=== PATIENT | female | born 1995 | race Caucasian/White ===

== ENCOUNTER 2025-05-29 18:04 | Inpatient (IN) ==
[2025-05-31] MEDS ORDERED: OXYTOCIN 30 UNITS/NSS 30 UNITS/500 ML BAG IV PRN ×2 (08:05→23:07)
[2025-05-31] MEDS ORDERED: LIDOCAINE 1% LOCAL 20 ML VIAL INFIL PRN (08:05)
[2025-05-31] MEDS ORDERED: ACETAMINOPHEN 325 MG TAB PO PRN ×2 (08:05→23:07)
[2025-05-31] MEDS ORDERED: CALCIUM CARBONATE 500 MG CHEWABLE TAB PO PRN (08:05)
--- NOTE | 2025-05-31 08:07 | History & Physical Report ---
Date of Service May 31, 2025 Assessment & Plan (1) with 41 completed weeks gestation: (2) Encounter for induction of labor: (3) Carrier of group B Streptococcus: Plan torrez placed for unfavorable cervix. start pitocin, epidural on request, arom when indicated, fetus category one. anticipate . pcn for gbs+ Admission and Anticipated Discharge Date Admission Date: May 31, 2025 History of Present Illness Chief Complaint: Patient is a 29yowf wtih iup at 41 weeks who presents for postdates induction. Notes good fm. no lof/vb. Occasional contraction. 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 GBS Positive in Urine *Treat in Labor OB Labs: Blood Type O Positive 10/28/24 Antibody Screen NEGATIVE 10/28/24 Hgb 11.2 g/dl (12.0-16.0) L 03/03/25 Hct 32.9 % (37.0-47.0) L 03/03/25 MCV 88.2 fL (80.0-100.0) 10/28/24 Plt Count 372 K/uL (130-400) 10/28/24 Rubella IgG Antibody Immune (Immune) 10/28/24 RPR Nonreactive (Nonreactive) 08/28/22 Treponema pallidum Ab Negative (Negative) 03/03/25 Hep Bs Antigen Negative (Negative) 10/28/24 Hep Bs Antigen NON-REACTIVE (NON-REACTIVE) 08/28/22 Hepatitis C Antibody Negative (Negative) 10/28/24 Hepatitis C Ab (EIA) NON-REACTIVE (NON-REACTIVE) 08/28/22 HIV 1&2 Ab/P24 Ag 4thGn Negative (Negative) 10/28/24 HIV (1&2) Ag & Ab Conf NON-REACTIVE (NON-REACTIVE) 08/28/22 Glucose 1 Hr 50 gm 120 mg/dl (70-130) 03/03/25 OB Optional Labs: Chlamydia trachomatis RNA Not Detected (NotDetected) 10/28/24 Neisseria gonorrhoeae RNA Not Detected (NotDetected) 10/28/24 Thyroid Stimulating Hormone (TSH) 1.920 uIu/ml (0.300-4.500) 07/17/18 Labs Reviewed: +SMA carrier; FOB to be tested--mln msafp declined smp cfDNA declines/quad declines smp gbs positive urine Primary Care Provider: MADHU Oneill Allergies Allergy/AdvReac Type Severity Reaction Status Date / Time No Known Allergies Allergy Verified 05/28/25 13:40 Home Medications Medication Instructions Recorded Confirmed Type vits no.124-ferrous fum 1 tab PO DAILY 05/31/25 05/31/25 History 27 mg iron-folic acid 800 mcg tablet ( Vitamin) Patient History Medical History Vaginal Pap smear with ASC-US Infection due to Neisseria gonorrhoeae Surgical History No pertinent past surgical history Family History Aunt Breast cancer Maternal, dx late 30s she thinks Denies family history of Ovarian cancer Prostate cancer Myocardial infarction Colorectal cancer Uterine cancer Social History Smoking Status: Never smoker Second Hand Exposure: No; Do You Dip or Chew Tobacco: No; Hx Alcohol Use: Yes Hx Substance Use: No Preferred Language: Sammarinese Communication Ability: Effective marital status: Single marital status details: manuel Granado (46) [phone] Current Living Situation: Significant Other Current Living Situation Comment: lives with fob, dog, guinea pig, cats-fob to change litter current occupational status: employed current occupation: [employer] Feels Safe at Home: Yes Childhood Exposure to Second-Hand Smoke: No caffeine: No Dental Care, Regularly: Yes Physical Activity Frequency: 5-6 Times per Week Seatbelt Use: always Sunscreen Use: Yes OB History g1--present [employer] History noncontributory Physical Exam Constitutional: WD/WN, vitals as above Gastrointestinal (Abdomen): soft, gravid, nt Psychiatric: A+Ox3, euthymic affect Genitourinary: cx--1/l/h, cephalic palpated toco--cortney efm--140s wtih mod variability, accels to 170s, no decels After reviewed r/b/se, verbal consent received for torrez bulb. speculum placed, torrez threaded through os, balloon filled with 30cc sterile water. tolerated well. Results & Data Vital Signs (Past 12 Hours) Vital Signs Pulse BP 05/31/25 07:51 89 143/81 H Coding Level of Care Code None Diagnoses with 41 completed weeks gestation O48.0; Z3A.41 Encounter for induction of labor Z34.90 Carrier of group B Streptococcus Z22.330
[2025-05-31 08:27] LABS: Hematocrit (blood only) 37.9 % (37.0-47.0); Hemoglobin 13.1 g/dl (12.0-16.0); Mean Corpuscular Hemoglobin 30.5 pg (25.0-34.0); Mean Corpuscular Volume 88.1 fL (80.0-100.0); Platelet Count 256 K/uL (130-400); RDW Standard Deviation 43.5 fL (36.4-46.3); Red Blood Count 4.30 M/uL (4.20-5.40); White Blood Count 6.29 K/ul (4.8-10.8)
[2025-05-31] MEDS: LACTATED RINGER'S 1,000 ML IV PRN (08:44)
[2025-05-31] MEDS: OXYTOCIN 30 UNITS/NSS 30 UNITS/500 ML BAG IV PRN (08:44)
[2025-05-31] MEDS: PENICILLIN GK 6 MU in DEXTROSE 5% 250 ML IV STA (08:46)
[2025-05-31] MEDS: PENICILLIN GK 3 MU in DEXTROSE 5% 100 ML IV PRN (12:32)
--- NOTE | 2025-05-31 13:48 | Anesthesiology Consultation ---
Date of Service May 31, 2025 Assessment & Plan (1) Encounter for pre-operative examination: Chart Review Chart Review: Acceptable Risk for Labor Epidural History Height/Weight Height: 5 ft 4.5 in Weight: 79.691 kg Allergies Allergy/AdvReac Type Severity Reaction Status Date / Time No Known Allergies Allergy Verified 05/28/25 13:40 Medications Home Medications Medication Instructions Recorded Confirmed Last Taken vits no.124-ferrous fum 1 tab PO DAILY 05/31/25 05/31/25 05/30/25 27 mg iron-folic acid 800 mcg tablet ( Vitamin) Active Medications Generic Name Dose Route Start Last Admin Trade Name Freq PRN Reason Stop Dose Admin Lactated Ringer's 1,000 mls @ 125 mls/hr 05/31/25 08:05 05/31/25 13:28 Lr IV 06/02/25 08:04 999 mls/hr .Q8H PRN Infusion L&D Protocol Protocol Penicillin G Potassium 3 mu/ 106 mls @ 100 mls/hr 05/31/25 11:05 05/31/25 12:32 Dextrose IV 06/10/25 11:04 100 mls/hr Q4H PRN Administration GBS(+) Until Delivery Oxytocin 30 units in 500 mls @ 8 mls/hr 05/31/25 08:09 05/31/25 11:05 Pitocin 30 Units/Nss IV 06/02/25 08:08 0.48 units/hr .Q24H PRN 8 mls/hr Labor Induction/Augmentation Titration Protocol 0.48 UNITS/HR Past Medical History Medical History Vaginal Pap smear with ASC-US Infection due to Neisseria gonorrhoeae Past Family History Family History Aunt Breast cancer Maternal, dx late 30s she thinks Denies family history of Ovarian cancer Prostate cancer Myocardial infarction Colorectal cancer Uterine cancer Past Surgical History Surgical History No pertinent past surgical history Social History Smoking Status: Never smoker Do You Dip or Chew Tobacco: No Hx Alcohol Use: No Hx Substance Use: No Physical Exam Vital Signs Last Vital Signs Temp 36.5 C 05/31/25 11:05 Pulse 75 05/31/25 11:04 Resp 18 07/20/25 11:10 BP 124/77 05/31/25 11:04 Testing Laboratory Results 05/31/25 08:13
[2025-05-31] MEDS: BUPIVACAINE 0.25% PF 30 ML VIAL ONE (14:16)
[2025-05-31] MEDS: LIDOCAINE 2%/EPINEPHRINE 1:200,000 20 ML PF ONE (14:16)
[2025-05-31] MEDS: fentANYL 2 MCG/ML BUPIVacaine 0.125%-NSS 100ML BAG ONE (14:17)
[2025-05-31] MEDS ORDERED: ROPIVACAINE 0.5% PF 5 MG/ML 20 ML VIAL EPI PRN (14:18)
[2025-05-31] MEDS ORDERED: NALOXONE HCL 0.4 MG/1 ML VIAL/CARP IV PRN (14:18)
[2025-05-31] MEDS ORDERED: BUPIVACAINE 0.25% PF 30 ML VIAL EPI PRN (14:18)
[2025-05-31] MEDS ORDERED: fentANYL 2 MCG/ML BUPIVacaine 0.125%-NSS 100ML BAG EPI PRN (14:18)
[2025-05-31] MEDS ORDERED: ONDANSETRON INJ 2 MG/ML 2 ML VIAL IV PRN (14:18)
[2025-05-31] MEDS ORDERED: SODIUM CHLORIDE 0.9% PF INJ 10 ML VIAL EPI PRN (14:18)
[2025-05-31] MEDS ORDERED: NALOXONE HCL 1 MG in SODIUM CHLORIDE 0.9% 1,000 ML IV PRN (14:18)
[2025-05-31] MEDS ORDERED: LIDOCAINE 2% MPF LOCAL 5 ML VIAL EPI PRN (14:18)
--- NOTE | 2025-05-31 14:44 | Labor Progress Brief Note ---
Date of Service May 31, 2025 Subjective Balloon out, comfortable with epidural Assessment & Plan (1) Encounter for induction of labor: Plan continue current management. fetus category one. Admission and Anticipated Discharge Date Admission Date: May 31, 2025 Physical Exam Physical Exam: cx--1.5-2/50/-2 arom--clear toco--q1-3, pit at 8 efm--140s with mod variability, accels present, no decels Results & Data Vital Signs (Past 12 Hours) Vital Signs Temp Pulse Resp BP Pulse Ox 05/31/25 14:36 98 05/31/25 14:36 106 H 05/31/25 14:31 100 05/31/25 14:31 81 05/31/25 14:30 75 05/31/25 14:30 111/75 05/31/25 14:27 81 05/31/25 14:27 105/58 L 05/31/25 14:26 98 05/31/25 14:26 85 05/31/25 14:25 72 05/31/25 14:25 106/54 L 05/31/25 14:23 64 05/31/25 14:23 109/57 L 05/31/25 14:21 100 05/31/25 14:21 75 05/31/25 14:21 112/58 L 05/31/25 14:19 75 05/31/25 14:19 111/56 L 05/31/25 14:17 75 05/31/25 14:17 111/56 L 05/31/25 14:16 100 05/31/25 14:16 65 05/31/25 14:15 65 05/31/25 14:15 114/63 05/31/25 14:13 61 05/31/25 14:13 108/57 L 05/31/25 14:12 64 05/31/25 14:12 128/67 05/31/25 14:11 100 05/31/25 14:11 62 05/31/25 14:09 76 05/31/25 14:09 145/70 H 05/31/25 14:06 100 05/31/25 14:06 97 H 05/31/25 14:05 92 H 05/31/25 14:05 166/76 H 05/31/25 14:01 100 05/31/25 14:01 89 05/31/25 13:56 99 05/31/25 13:56 89 05/31/25 11:10 18 05/31/25 11:10 18 05/31/25 11:05 18 05/31/25 11:05 36.5 C 18 05/31/25 11:04 75 05/31/25 11:04 124/77 05/31/25 10:09 83 05/31/25 10:09 125/76 05/31/25 08:11 96 H 05/31/25 08:11 118/80 05/31/25 08:01 36.8 C 05/31/25 07:51 89 143/81 H Coding Level of Care Code None Diagnoses Encounter for induction of labor Z34.90
[2025-05-31] MEDS: SODIUM CHLORIDE 0.9% PF INJ 10 ML VIAL ONE (18:07)
[2025-05-31] MEDS: SODIUM CHLORIDE 0.9% PF INJ 10 ML VIAL EPI STA (18:07)
[2025-05-31] MEDS: BUPIVACAINE 0.25% PF 30 ML VIAL EPI STA (18:07)
--- NOTE | 2025-05-31 18:07 | Labor Progress Brief Note ---
Date of Service May 31, 2025 Subjective comfortable Assessment & Plan (1) Encounter for induction of labor: Plan IUPC placed in order to better run pitocin, suspect we don't have adequate contractions at this point, although she is making change. fetus category one. Admission and Anticipated Discharge Date Admission Date: May 31, 2025 Physical Exam Physical Exam: cx--3/90/-2 toco--q2min, pit at 8, palpates mod efm--140s with mod variability, accels to 150s, no decels Results & Data Vital Signs (Past 12 Hours) Vital Signs Temp Pulse Resp BP Pulse Ox 05/31/25 18:01 100 05/31/25 18:01 76 05/31/25 18:01 121/72 05/31/25 18:00 87 L 05/31/25 18:00 72 05/31/25 17:56 100 05/31/25 17:56 64 05/31/25 17:51 100 05/31/25 17:51 66 05/31/25 17:46 100 05/31/25 17:46 62 05/31/25 17:46 107/59 L 05/31/25 17:41 100 05/31/25 17:41 61 05/31/25 17:40 18 05/31/25 17:40 18 05/31/25 17:36 100 05/31/25 17:36 63 05/31/25 17:32 66 05/31/25 17:32 111/62 05/31/25 17:31 100 05/31/25 17:31 64 05/31/25 17:28 88 L 05/31/25 17:28 72 05/31/25 17:26 100 05/31/25 17:26 73 05/31/25 17:21 100 05/31/25 17:21 64 05/31/25 17:16 100 05/31/25 17:16 62 05/31/25 17:16 108/59 L 05/31/25 17:11 100 05/31/25 17:11 74 05/31/25 17:06 99 05/31/25 17:06 62 05/31/25 17:01 97 05/31/25 17:01 71 05/31/25 17:00 68 05/31/25 17:00 111/70 05/31/25 16:56 100 07/20/25 16:56 61 05/31/25 16:51 100 05/31/25 16:51 69 05/31/25 16:47 66 05/31/25 16:47 115/69 05/31/25 16:46 100 05/31/25 16:46 65 05/31/25 16:41 100 05/31/25 16:41 58 L 05/31/25 16:40 18 05/31/25 16:40 18 05/31/25 16:36 100 05/31/25 16:36 78 05/31/25 16:33 18 05/31/25 16:33 36.5 C 18 05/31/25 16:31 96 05/31/25 16:31 83 05/31/25 16:31 75 05/31/25 16:31 120/63 05/31/25 16:28 92 05/31/25 16:28 108 H 05/31/25 16:26 100 05/31/25 16:26 89 05/31/25 16:21 100 05/31/25 16:21 110 H 05/31/25 16:21 89 L 05/31/25 16:21 112 H 05/31/25 16:16 100 05/31/25 16:16 77 05/31/25 16:16 94 05/31/25 16:16 78 05/31/25 16:15 67 05/31/25 16:15 108/69 05/31/25 16:11 100 05/31/25 16:11 76 05/31/25 16:06 100 05/31/25 16:06 70 05/31/25 16:01 100 05/31/25 16:01 78 05/31/25 16:00 74 05/31/25 16:00 117/73 05/31/25 15:56 100 05/31/25 15:56 86 05/31/25 15:51 98 05/31/25 15:51 68 05/31/25 15:47 92 05/31/25 15:47 80 05/31/25 15:46 100 05/31/25 15:46 79 05/31/25 15:46 112/73 05/31/25 15:41 100 05/31/25 15:41 79 05/31/25 15:36 100 05/31/25 15:36 77 05/31/25 15:31 100 05/31/25 15:31 67 05/31/25 15:30 102 H 05/31/25 15:30 126/76 05/31/25 15:26 100 05/31/25 15:26 78 05/31/25 15:24 92 05/31/25 15:24 80 05/31/25 15:21 100 05/31/25 15:21 87 05/31/25 15:17 80 05/31/25 15:17 128/72 05/31/25 15:16 96 05/31/25 15:16 77 05/31/25 15:11 100 05/31/25 15:11 83 05/31/25 15:08 92 05/31/25 15:08 83 05/31/25 15:06 99 05/31/25 15:06 77 05/31/25 15:01 100 05/31/25 15:01 73 05/31/25 15:01 132/75 05/31/25 14:56 100 05/31/25 14:56 86 05/31/25 14:51 99 05/31/25 14:51 80 05/31/25 14:46 100 05/31/25 14:46 72 05/31/25 14:45 71 05/31/25 14:45 119/75 05/31/25 14:41 98 05/31/25 14:41 86 05/31/25 14:36 98 05/31/25 14:36 106 H 05/31/25 14:31 100 05/31/25 14:31 81 05/31/25 14:30 75 05/31/25 14:30 111/75 05/31/25 14:27 81 05/31/25 14:27 105/58 L 05/31/25 14:26 98 05/31/25 14:26 85 05/31/25 14:25 72 05/31/25 14:25 106/54 L 05/31/25 14:23 64 05/31/25 14:23 109/57 L 05/31/25 14:21 100 05/31/25 14:21 75 05/31/25 14:21 112/58 L 05/31/25 14:19 75 05/31/25 14:19 111/56 L 05/31/25 14:17 75 05/31/25 14:17 111/56 L 05/31/25 14:16 100 05/31/25 14:16 65 05/31/25 14:15 65 05/31/25 14:15 114/63 05/31/25 14:13 61 05/31/25 14:13 108/57 L 05/31/25 14:12 64 05/31/25 14:12 128/67 05/31/25 14:11 100 05/31/25 14:11 62 05/31/25 14:09 76 05/31/25 14:09 145/70 H 05/31/25 14:06 100 05/31/25 14:06 97 H 05/31/25 14:05 92 H 05/31/25 14:05 166/76 H 05/31/25 14:01 100 05/31/25 14:01 89 05/31/25 13:56 99 05/31/25 13:56 89 05/31/25 13:40 18 05/31/25 13:40 18 05/31/25 11:10 18 05/31/25 11:10 18 05/31/25 11:05 18 05/31/25 11:05 36.5 C 18 05/31/25 11:04 75 05/31/25 11:04 124/77 05/31/25 10:09 83 05/31/25 10:09 125/76 05/31/25 08:11 96 H 05/31/25 08:11 118/80 05/31/25 08:01 36.8 C 18 05/31/25 07:51 89 143/81 H Coding Level of Care Code None Diagnoses Encounter for induction of labor Z34.90
[2025-05-31] MEDS: LIDOCAINE 2%/EPINEPHRINE 1:200,000 20 ML PF EPI STA (18:08)
--- NOTE | 2025-05-31 21:36 | Labor Progress Brief Note ---
Date of Service May 31, 2025 Subjective comfortable, bloody show Assessment & Plan (1) Encounter for induction of labor: Plan continue current management. fetus overall reassuring category one. anticipate . Admission and Anticipated Discharge Date Admission Date: May 31, 2025 Physical Exam Physical Exam: cx--9/100/0 toco--q2min, pit at 14 efm--140s wtih mod variability, accels present, variables noted Results & Data Vital Signs (Past 12 Hours) Vital Signs Temp Pulse Resp BP Pulse Ox 05/31/25 21:31 99 05/31/25 21:31 81 05/31/25 21:31 128/65 05/31/25 21:30 89 L 05/31/25 21:30 75 05/31/25 21:26 100 05/31/25 21:26 55 L 05/31/25 21:21 98 05/31/25 21:21 83 05/31/25 21:16 100 05/31/25 21:16 59 L 05/31/25 21:16 119/79 05/31/25 21:11 100 05/31/25 21:11 63 05/31/25 21:06 100 05/31/25 21:06 65 05/31/25 21:05 36.7 C 05/31/25 21:02 71 05/31/25 21:02 122/81 05/31/25 21:01 99 05/31/25 21:01 69 05/31/25 20:56 100 05/31/25 20:56 68 05/31/25 20:54 87 L 05/31/25 20:54 75 05/31/25 20:51 99 05/31/25 20:51 72 05/31/25 20:46 100 05/31/25 20:46 62 05/31/25 20:46 124/77 05/31/25 20:41 99 05/31/25 20:41 68 05/31/25 20:36 100 05/31/25 20:36 63 05/31/25 20:31 98 05/31/25 20:31 73 05/31/25 20:31 74 05/31/25 20:31 131/84 05/31/25 20:26 87 L 05/31/25 20:26 71 05/31/25 20:21 100 05/31/25 20:21 58 L 05/31/25 20:16 90 05/31/25 20:16 85 05/31/25 20:11 100 05/31/25 20:11 65 05/31/25 20:06 100 05/31/25 20:06 62 05/31/25 20:01 100 05/31/25 20:01 63 05/31/25 20:01 60 05/31/25 20:01 119/75 05/31/25 19:56 86 L 05/31/25 19:56 69 05/31/25 19:51 100 05/31/25 19:51 65 05/31/25 19:46 96 05/31/25 19:46 95 H 05/31/25 19:46 118/83 05/31/25 19:46 89 L 05/31/25 19:46 81 05/31/25 19:41 100 05/31/25 19:41 67 05/31/25 19:36 100 05/31/25 19:36 60 05/31/25 19:31 100 05/31/25 19:31 58 L 05/31/25 19:30 63 05/31/25 19:30 112/64 05/31/25 19:26 100 05/31/25 19:26 61 05/31/25 19:21 100 05/31/25 19:21 64 05/31/25 19:17 59 L 05/31/25 19:17 115/64 05/31/25 19:16 100 05/31/25 19:16 59 L 05/31/25 19:11 100 05/31/25 19:11 67 05/31/25 19:10 36.8 C 18 05/31/25 19:07 82 L 05/31/25 19:07 90 05/31/25 19:06 100 05/31/25 19:06 87 05/31/25 19:01 100 05/31/25 19:01 76 05/31/25 19:01 122/68 05/31/25 18:56 99 05/31/25 18:56 78 05/31/25 18:51 99 05/31/25 18:51 87 05/31/25 18:46 100 05/31/25 18:46 72 05/31/25 18:46 70 05/31/25 18:46 115/62 05/31/25 18:41 99 05/31/25 18:41 67 05/31/25 18:36 100 05/31/25 18:36 77 05/31/25 18:31 100 05/31/25 18:31 71 05/31/25 18:31 79 05/31/25 18:31 130/82 05/31/25 18:26 99 05/31/25 18:26 77 05/31/25 18:21 100 05/31/25 18:21 69 05/31/25 18:16 99 05/31/25 18:16 92 H 05/31/25 18:15 81 05/31/25 18:15 115/75 05/31/25 18:11 96 05/31/25 18:11 79 05/31/25 18:06 100 05/31/25 18:06 73 05/31/25 18:01 100 05/31/25 18:01 76 05/31/25 18:01 121/72 05/31/25 18:00 87 L 05/31/25 18:00 72 05/31/25 17:56 100 05/31/25 17:56 64 05/31/25 17:51 100 05/31/25 17:51 66 05/31/25 17:46 100 05/31/25 17:46 62 05/31/25 17:46 107/59 L 05/31/25 17:41 100 05/31/25 17:41 61 05/31/25 17:40 18 05/31/25 17:40 18 05/31/25 17:36 100 05/31/25 17:36 63 05/31/25 17:32 66 05/31/25 17:32 111/62 05/31/25 17:31 100 05/31/25 17:31 64 05/31/25 17:28 88 L 05/31/25 17:28 72 05/31/25 17:26 100 05/31/25 17:26 73 05/31/25 17:21 100 05/31/25 17:21 64 05/31/25 17:16 100 05/31/25 17:16 62 05/31/25 17:16 108/59 L 05/31/25 17:11 100 05/31/25 17:11 74 05/31/25 17:06 99 05/31/25 17:06 62 05/31/25 17:01 97 05/31/25 17:01 71 05/31/25 17:00 68 05/31/25 17:00 111/70 05/31/25 16:56 100 05/31/25 16:56 61 05/31/25 16:51 100 05/31/25 16:51 69 05/31/25 16:47 66 05/31/25 16:47 115/69 05/31/25 16:46 100 05/31/25 16:46 65 05/31/25 16:41 100 05/31/25 16:41 58 L 05/31/25 16:40 18 05/31/25 16:40 18 05/31/25 16:36 100 05/31/25 16:36 78 05/31/25 16:33 18 05/31/25 16:33 36.5 C 18 05/31/25 16:31 96 05/31/25 16:31 83 05/31/25 16:31 75 05/31/25 16:31 120/63 05/31/25 16:28 92 05/31/25 16:28 108 H 05/31/25 16:26 100 05/31/25 16:26 89 05/31/25 16:21 100 05/31/25 16:21 110 H 05/31/25 16:21 89 L 05/31/25 16:21 112 H 05/31/25 16:16 100 05/31/25 16:16 77 05/31/25 16:16 94 05/31/25 16:16 78 05/31/25 16:15 67 05/31/25 16:15 108/69 05/31/25 16:11 100 05/31/25 16:11 76 05/31/25 16:06 100 05/31/25 16:06 70 05/31/25 16:01 100 05/31/25 16:01 78 05/31/25 16:00 74 05/31/25 16:00 117/73 05/31/25 15:56 100 05/31/25 15:56 86 05/31/25 15:51 98 05/31/25 15:51 68 05/31/25 15:47 92 05/31/25 15:47 80 05/31/25 15:46 100 05/31/25 15:46 79 05/31/25 15:46 112/73 05/31/25 15:41 100 05/31/25 15:41 79 05/31/25 15:36 100 05/31/25 15:36 77 05/31/25 15:31 100 05/31/25 15:31 67 05/31/25 15:30 102 H 05/31/25 15:30 126/76 05/31/25 15:26 100 05/31/25 15:26 78 05/31/25 15:24 92 05/31/25 15:24 80 05/31/25 15:21 100 05/31/25 15:21 87 05/31/25 15:17 80 05/31/25 15:17 128/72 05/31/25 15:16 96 05/31/25 15:16 77 05/31/25 15:11 100 05/31/25 15:11 83 05/31/25 15:08 92 05/31/25 15:08 83 05/31/25 15:06 99 05/31/25 15:06 77 05/31/25 15:01 100 05/31/25 15:01 73 05/31/25 15:01 132/75 05/31/25 14:56 100 05/31/25 14:56 86 05/31/25 14:51 99 05/31/25 14:51 80 05/31/25 14:46 100 05/31/25 14:46 72 05/31/25 14:45 71 05/31/25 14:45 119/75 05/31/25 14:41 98 05/31/25 14:41 86 05/31/25 14:36 98 05/31/25 14:36 106 H 05/31/25 14:31 100 05/31/25 14:31 81 05/31/25 14:30 75 05/31/25 14:30 111/75 05/31/25 14:27 81 05/31/25 14:27 105/58 L 05/31/25 14:26 98 05/31/25 14:26 85 05/31/25 14:25 72 05/31/25 14:25 106/54 L 05/31/25 14:23 64 05/31/25 14:23 109/57 L 05/31/25 14:21 100 05/31/25 14:21 75 05/31/25 14:21 112/58 L 05/31/25 14:19 75 05/31/25 14:19 111/56 L 05/31/25 14:17 75 05/31/25 14:17 111/56 L 05/31/25 14:16 100 05/31/25 14:16 65 05/31/25 14:15 65 05/31/25 14:15 114/63 05/31/25 14:13 61 05/31/25 14:13 108/57 L 05/31/25 14:12 64 05/31/25 14:12 128/67 05/31/25 14:11 100 05/31/25 14:11 62 05/31/25 14:09 76 05/31/25 14:09 145/70 H 05/31/25 14:06 100 05/31/25 14:06 97 H 05/31/25 14:05 92 H 05/31/25 14:05 166/76 H 05/31/25 14:01 100 05/31/25 14:01 89 05/31/25 13:56 99 05/31/25 13:56 89 05/31/25 13:40 18 05/31/25 13:40 18 05/31/25 11:10 18 05/31/25 11:10 18 05/31/25 11:05 18 05/31/25 11:05 36.5 C 18 05/31/25 11:04 75 05/31/25 11:04 124/77 05/31/25 10:09 83 05/31/25 10:09 125/76 Coding Level of Care Code None Diagnoses Encounter for induction of labor Z34.90
[2025-05-31] MEDS ORDERED: BENZOCAINE 20% SPRY 85 APPLN/85 GM CAN EXT PRN (23:07)
[2025-05-31] MEDS ORDERED: HYDROCORTISONE ACETATE 25 MG SUPP PR PRN (23:07)
[2025-05-31] MEDS ORDERED: IBUPROFEN 600 MG TAB PO PRN (23:07)
--- NOTE | 2025-05-31 23:07 | Delivery Summary ---
Vaginal Delivery Summary Date of Service May 31, 2025 Vaginal Delivery Summary and 1st Degree LAC (with bilateral labial lacs) Pre-operative Diagnosis: at 41 weeks gbs positive Post-operative Diagnosis: same Procedure: torrez bulb for cervical ripening pitocin induction epidural arom iupc first degree and bilateral labial lacs and repair QBL: 203 Anesthesia: epidural Procedure: Patient presented for postdates iol. Got torrez bulb and concurrent pitocin induction. Got epidural and arom. REquired iupc to help manage pitocin. Progressed to c/c/+2. The patient pushed for about 10 minutes to deliver a viable female in lisa position. The nose and mouth were bulb suctioned on the perineum and a tight nuchal cord required clamping and cutting on the perineum. The rest of the infant was then delivered without difficulty. The baby was vigorous. The nose and mouth were again bulb suctioned and the infant was placed in the maternal abdomen for drying and attention. Cord blood and segment obtained. Placenta delivered spontaneous, intact with a three vessel cord. There was a succinturate lobe noted. Cervix/sulci/rectum were intact. A first degree perineal laceration and bilateral labial lacs were repaired in the normal standard fashion. Hemostasis obtained with dilute pitocin and fundal massage. Apgars were 8/9. Mother and baby doing well at the end of the delivery. [facility] [place] Vag[place] Delivery Charge Delivery Type Details: and 1st Degree LAC (with bilateral labial lacs)
[2025-06-01] MEDS: DIPHTHER/TETAN/PERTUS Vaccine (Tdap, Adol/Adult) 0.5mL IM ONE (01:27)
--- NOTE | 2025-06-01 05:49 | Obstetrical Progress Note ---
Date of Service June 01, 2025 Assessment & Plan (1) care following vaginal delivery: Plan Bia Reddy is a 29 post- day 1 s/p Fells well today. Vital signs stable Continue post- care Encourage ambulation and Pain controlled with ibuprofen Hgb stable Discharge home tomorrow, follow-up with Dr. Reyes in 6 weeks. Admission and Anticipated Discharge Date Admission Date: May 31, 2025 Anticipated date of discharge: 06/03/25 Supervising Physician Co-Signing Physician Notes Resident Physician Supervision Note: I interviewed and examined the patient. Discussed with Dr. Sánchez and agree with findings and plan as documented in the note. Any exceptions or clarifications are listed here: Doing well, routine care. Documented By: Dulce Maria Reyes MD, FACOG Subjective Bia Reddy is a 29 y/p day 1 s/o Ambulation: ambulating normally Voiding: no voiding problems Passing Gas:: Yes Diet Tolerance:: regular diet Lochia:: Small Feeding Type:: breast feeding Current Pain Level: 3/10 Resting comfortably this AM in NAD. Denies WISDOM, CP, SOB, N/V/D, LE pain/swelling. Review of Systems Review of Systems: All systems reviewed & are unremarkable except as noted in HPI & below Physical Exam Physical Exam: General: patient resting comfortably, NAD, non-toxic in appearance, AA&O x 4, answers questions appropriately. Skin: warm, dry, intact HEENT: NC/AT, anicteric sclera, conjunctiva without injection, moist mucus membranes. Heart: +S1/S2, regular, no m/r/g Lungs: equal air entry bilaterally, no rales/rhonchi/wheezes Abd: +BS, soft, NT/ND, uterine fundus firm, nontender at level of umbilicus. Ext: warm, no clubbing/cyanosis or edema, Yue's neg. Neuro: nonfocal, patient AA&O x 4, speech intact, no facial droop, moving all extremities on command. Results & Data Vital Signs (Past 12 Hours) Vital Signs Temp Pulse Resp BP BP Pulse Ox O2 Del Method 06/01/25 03:57 36.4 C L 16 129/69 98 Room Air 06/01/25 01:30 36.6 C 16 125/77 97 Room Air 06/01/25 01:00 36.7 C 20 06/01/25 00:59 72 118/60 06/01/25 00:44 84 123/58 L 06/01/25 00:30 20 06/01/25 00:30 78 123/58 L 06/01/25 00:15 76 121/69 06/01/25 00:00 18 06/01/25 00:00 85 137/88 05/31/25 23:45 18 05/31/25 23:45 78 05/31/25 23:45 118/66 05/31/25 23:30 18 05/31/25 23:16 77 05/31/25 23:16 128/76 05/31/25 23:15 18 05/31/25 23:02 93 H 05/31/25 23:02 130/58 L 05/31/25 23:00 20 05/31/25 22:56 98 05/31/25 22:56 87 05/31/25 22:51 98 05/31/25 22:51 95 H 05/31/25 22:46 96 05/31/25 22:46 92 H 05/31/25 22:45 93 H 05/31/25 22:45 150/81 H 05/31/25 22:41 99 05/31/25 22:41 117 H 05/31/25 22:39 83 L 05/31/25 22:39 93 H 05/31/25 22:36 99 05/31/25 22:36 90 05/31/25 22:31 100 05/31/25 22:31 105 H 05/31/25 22:31 108 H 05/31/25 22:31 139/80 05/31/25 22:26 100 05/31/25 22:26 92 H 05/31/25 22:21 98 05/31/25 22:21 86 05/31/25 22:17 98 H 05/31/25 22:17 135/77 05/31/25 22:16 100 05/31/25 22:16 85 05/31/25 22:11 98 05/31/25 22:11 83 05/31/25 22:06 96 05/31/25 22:06 86 05/31/25 22:02 77 05/31/25 22:02 112/62 07/20/25 22:02 88 L 05/31/25 22:02 88 05/31/25 22:01 98 05/31/25 22:01 87 05/31/25 21:56 96 05/31/25 21:56 86 05/31/25 21:51 100 05/31/25 21:51 63 05/31/25 21:47 58 L 05/31/25 21:47 111/62 05/31/25 21:46 100 05/31/25 21:46 61 05/31/25 21:41 98 05/31/25 21:41 64 05/31/25 21:36 99 05/31/25 21:36 75 05/31/25 21:31 99 05/31/25 21:31 81 05/31/25 21:31 128/65 05/31/25 21:30 89 L 05/31/25 21:30 75 05/31/25 21:26 100 05/31/25 21:26 55 L 05/31/25 21:21 98 05/31/25 21:21 83 05/31/25 21:16 100 05/31/25 21:16 59 L 05/31/25 21:16 119/79 05/31/25 21:11 100 05/31/25 21:11 63 05/31/25 21:06 100 05/31/25 21:06 65 05/31/25 21:05 36.7 C 05/31/25 21:02 71 05/31/25 21:02 122/81 05/31/25 21:01 99 05/31/25 21:01 69 05/31/25 20:56 100 05/31/25 20:56 68 05/31/25 20:54 87 L 05/31/25 20:54 75 05/31/25 20:51 99 05/31/25 20:51 72 05/31/25 20:46 100 05/31/25 20:46 62 05/31/25 20:46 124/77 05/31/25 20:41 99 05/31/25 20:41 68 05/31/25 20:36 100 05/31/25 20:36 63 05/31/25 20:31 98 05/31/25 20:31 73 05/31/25 20:31 74 05/31/25 20:31 131/84 05/31/25 20:26 87 L 05/31/25 20:26 71 05/31/25 20:21 100 05/31/25 20:21 58 L 05/31/25 20:16 90 05/31/25 20:16 85 05/31/25 20:11 100 05/31/25 20:11 65 05/31/25 20:06 100 05/31/25 20:06 62 05/31/25 20:01 100 05/31/25 20:01 63 05/31/25 20:01 60 05/31/25 20:01 119/75 05/31/25 19:56 86 L 05/31/25 19:56 69 05/31/25 19:51 100 05/31/25 19:51 65 05/31/25 19:46 96 05/31/25 19:46 95 H 05/31/25 19:46 118/83 05/31/25 19:46 89 L 05/31/25 19:46 81 05/31/25 19:41 100 05/31/25 19:41 67 05/31/25 19:36 100 05/31/25 19:36 60 05/31/25 19:31 100 05/31/25 19:31 58 L 05/31/25 19:30 63 05/31/25 19:30 112/64 05/31/25 19:26 100 05/31/25 19:26 61 05/31/25 19:21 100 05/31/25 19:21 64 05/31/25 19:17 59 L 05/31/25 19:17 115/64 05/31/25 19:16 100 05/31/25 19:16 59 L 05/31/25 19:11 100 05/31/25 19:11 67 05/31/25 19:10 36.8 C 18 05/31/25 19:07 82 L 05/31/25 19:07 90 05/31/25 19:06 100 05/31/25 19:06 87 05/31/25 19:01 100 05/31/25 19:01 76 05/31/25 19:01 122/68 05/31/25 18:56 99 05/31/25 18:56 78 05/31/25 18:51 99 05/31/25 18:51 87 05/31/25 18:46 100 05/31/25 18:46 72 05/31/25 18:46 70 05/31/25 18:46 115/62 05/31/25 18:41 99 05/31/25 18:41 67 05/31/25 18:36 100 05/31/25 18:36 77 05/31/25 18:31 100 05/31/25 18:31 71 05/31/25 18:31 79 05/31/25 18:31 130/82 05/31/25 18:26 99 05/31/25 18:26 77 05/31/25 18:21 100 05/31/25 18:21 69 05/31/25 18:16 99 05/31/25 18:16 92 H 05/31/25 18:15 81 05/31/25 18:15 115/75 05/31/25 18:11 96 05/31/25 18:11 79 05/31/25 18:06 100 05/31/25 18:06 73 05/31/25 18:01 100 05/31/25 18:01 76 05/31/25 18:01 121/72 05/31/25 18:00 87 L 05/31/25 18:00 72 05/31/25 17:56 100 05/31/25 17:56 64 05/31/25 17:51 100 05/31/25 17:51 66 05/31/25 17:46 100 05/31/25 17:46 62 05/31/25 17:46 107/59 L
[2025-06-01 06:17] LABS: Hematocrit (blood only) 37.8 % (37.0-47.0); Hemoglobin 12.7 g/dl (12.0-16.0)
--- NOTE | 2025-06-01 07:00 | Anesthesia Procedure Note ---
Date of Service June 01, 2025 Anesthesia Post Epidural Note Vital Signs Vital Signs: Temp Pulse Resp BP Pulse Ox O2 Del Method 36.4 C L 72 16 129/69 98 Room Air 06/01/25 03:57 06/01/25 00:59 06/01/25 03:57 06/01/25 03:57 06/01/25 03:57 06/01/25 03:57 Pain Intensity Abdomen: Pain Intensity: 0 Notes Mental Status: alert / awake / arousable and participated in evaluation Patient Amnestic to Procedure: No Nausea / Vomiting: adequately controlled Pain: adequately controlled Airway Patency, RR, SpO2: stable & adequate BP & HR: stable & adequate Hydration State: stable & adequate Neuraxial Anesthesia: was administered and sensory block resolved Anesthetic Complications: no major complications apparent and Pt Satisfied with anesthetic care Epidural: Removed without complications and With tip intact
[2025-06-01] MEDS: PRENATAL VITAMIN 1 TAB PO SCH (07:38)
[2025-06-01] MEDS: DOCUSATE SODIUM 100 MG CAP PO SCH (07:38)
--- NOTE | 2025-06-02 05:54 | Obstetrical Progress Note ---
Date of Service June 02, 2025 Assessment & Plan (1) care following vaginal delivery: Plan Bia Reddy is a 29 post- day 2 s/p Fells well today. Vital signs stable Continue post- care Encourage ambulation and Pain controlled with ibuprofen Hgb stable Discharge home today, follow-up with Dr. Reyes in 6 weeks. Admission and Anticipated Discharge Date Admission Date: May 31, 2025 Anticipated date of discharge: 06/02/25 Supervising Physician Co-Signing Physician Notes Resident Physician Supervision Note: I was present with Dr. Sánchez during the history and exam. I discussed the case with the resident and agree with the findings and plan as documented in the note. Any exceptions or clarifications are listed here: [None] Documented By: Tiffanie Barker MD, FACOG Subjective Bia Reddy is a 29 y/p day 2 s/p Ambulation: ambulating normally Voiding: no voiding problems Passing Gas:: Yes Diet Tolerance:: regular diet Lochia:: Small Feeding Type:: breast feeding Current Pain Level: none Resting comfortably this AM in NAD. Denies WISDOM, CP, SOB, N/V/D, LE pain/swelling. Physical Exam Physical Exam: General: patient resting comfortably, NAD, non-toxic in appearance, AA&O x 4, answers questions appropriately. Skin: warm, dry, intact HEENT: NC/AT, anicteric sclera, conjunctiva without injection, moist mucus membranes. Heart: +S1/S2, regular, no m/r/g Lungs: equal air entry bilaterally, no rales/rhonchi/wheezes Abd: +BS, soft, NT/ND, uterine fundus firm, nontender at level of umbilicus. Ext: warm, no clubbing/cyanosis or edema, Yue's neg. Neuro: nonfocal, patient AA&O x 4, speech intact, no facial droop, moving all extremities on command. Results & Data Vital Signs (Past 12 Hours) Vital Signs Temp Pulse Resp BP Pulse Ox O2 Del Method 06/02/25 03:00 36.4 C L 68 16 106/76 98 Room Air 06/01/25 23:50 36.6 C 66 18 121/83 100 Room Air 06/01/25 20:00 36.9 C 70 18 126/76 97 Room Air
[2025-06-02 07:28] VITALS: RESP 18; TEMP 97.7
[2025-06-02 09:43] VITALS: BP 126/82; PULSE 87; O2SAT 99
== END 2025-06-02 12:48 | disposition home or self-care (01) | DRG 807 ==
LOC: 4S1 05-31 07:33 → 4E2 06-01 01:28